=== PATIENT | male | born 1955 | race Caucasian/White ===

== ENCOUNTER 2023-11-19 13:18 | Emergency (ER) | payer MEDICARE, SELFPAY ==
[2023-11-19 13:22] VITALS: BP 124/84
[2023-11-19 14:00] VITALS: BP 128/89
--- NOTE | 2023-11-19 14:30 | ED.GENMED ---
History of Present Illness
General
Chief Complaint: Skin Problem
Source: patient
Time Seen by Provider: 11/19/23 14:21
History of Present Illness
History of Present Illness:
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 Patient had a GI bug earlier this week with vomiting and diarrhea. He missed 2 days of his Eliquis
due to the symptoms. Patient noticed a small amount of redness to the right lower leg 3 days ago. The redness has been spreading and is now circumferential in the right lower leg. He denies any fevers, chills, chest pain, shortness of breath. His
GI symptoms have resolved. His blood sugars have been ranging in the 140s over the past few days.
Past History
Past History
ED Past Medical History: NIDDM
ED Past Surgical History: Other (Hernia surgery)
Social History
Tobacco: Non-smoker
Personal:
Living: with family
Phy Exam
General Physical Exam
General Presentation: well appearing and no apparent distress
General age: appears stated age
General Skin: warm and dry
General Habitus: normal
General Mental: alert
Sparkman Coma Scale
Eye Opening: Spontaneous
Verbal Response: Oriented
Motor Response: Obeys Commands
GCS Total Score: 15
Musculoskeletal Exam
Musculoskeletal Exam: full ROM (No knee effusion noted. ROM of knee and ankle intact.)
Skin Exam
Skin Exam: warm/dry and erythema (Circumferential blanchable erythema and warmth noted to the R calf. 1-2+ pitting edema noted. No fluctuance, crepitus, or pain out of proportion. No open wounds. 2+ DP pulse and sensation intact.)
Psychiatric Exam
Psychiatric Exam: normal mood/affect
Course
Orders/Labs/Results
Orders:
Orders
11/19/23 14:30
Venous Doppler Lwr Ext Rt [US Periph Venous LOWER Ext RT] Urgent
Comment:
Reason For Exam: R calf redness/swelling, hx of DVT
11/19/23 14:42
Basic Metabolic Panel Urgent
Complete Blood Count/With Diff Urgent
PTT Urgent
Prothrombin Time Urgent
11/19/23 15:54
Cephalexin Monohydrate [Keflex] 500 mg PO NOW STA
Abnormal Lab Results
11/19/23
14:42
Abs Immat Gran (auto) 0.1 H 10^3/uL
(0-0.05)
Absolute Neuts (auto) 6.6 H 10^3/uL
(1.4-6.5)
Absolute Monos (auto) 0.9 H 10^3/uL
(0.1-0.6)
Immature Gran % 1.0 H %
(0-0.5)
Lymphocytes % 16.3 L %
(20.5-51.1)
Monocytes % 9.6 H %
(1.7-9.3)
PT 15.8 H Sec
(11.4-14.6)
APTT 39.8 H Sec
(23.4-35.0)
BUN 21 H mg/dl
(9-20)
Glucose 126 H mg/dl
(70-99)
11/19/23 14:42
11/19/23 14:42
Vital Signs
Initial and Last Documented VS:
Initial Vital Signs
Temp Pulse Resp BP Pulse Ox
98 F 100 16 124/84 98
11/19/23 13:22 11/19/23 13:22 11/19/23 13:22 11/19/23 13:22 11/19/23 13:22
Last Documented Vital Signs
Temp Pulse Resp BP Pulse Ox
98.9 F 81 16 116/77 97
11/19/23 15:56 11/19/23 15:56 11/19/23 13:22 11/19/23 15:56 11/19/23 15:56
MDM/Problems Addressed
Differential Diagnosis Includes:
68yoM here with R calf redness and swelling progressing over the past few days. Hx of DVT/PE and missed 2 doses of Eliquis earlier this week. No f/c. No CP/SOB. He is afebrile and hemodynamically stable. He is well appearing in no distress. There is
circumferential erythema noted to the R calf on exam. RLE is neurovascularly intact. Differential diagnosis includes but is not limited to: cellulitis, DVT, chronic venous stasis changes
Initial ED plan: Check CBC, CMP, coags, and venous duplex.
*Critical Care Note
Total Time (30-74mins, 75-104mins- exclusive of procedures): Not Applicable
Update Note
Update Note:
Labs reveal a normal white count. Glucose 126. Venous duplex is negative for DVT. There is a benign appearing lymph node present in the R groin. No indication for admission at this time. Will start patient on a course of Keflex to cover for
cellulitis. Advised close PCP f/u and ED return precautions discussed. He was discharged in stable condition.
ED Attending Note
-
Portions of this chart may have been created with voice recognition software.� Occasional wrong word or��sound alike� substitutions may have occurred due to the inherent limitations of voice recognition software.
Discharge Plan
Departure
Patient Disposition: Home (Routine Discharge)
Date of Disposition: 11/19/23
Time of Disposition: 15:55
Patient with high blood pressure during this ER visit?: No
Discharge Problem:
Cellulitis of right lower extremity
Instructions: Cellulitis (Skin Infection), Adult (DC)
Prescriptions:
New
cephalexin 500 mg capsule
500 mg PO Q6H 7 Days Qty: 27 0RF
No Action
metformin 500 MG tablet
500 mg PO HS
fluticasone propionate [Flovent Diskus] 50 MCG blister with device
1 puff inhalation DAILY PRN (Reason: sob)
albuterol sulfate 8.5 GM HFA aerosol inhaler
8.5 gm inhalation Q4HPRN PRN (Reason: sob)
benzonatate [Tessalon Perles] 100 MG capsule
100 mg PO .TAKE 1 TO 2 CAPSULE PRN (Reason: cough)
ascorbate calcium (vitamin C) [Beverly-C] 500 MG tablet
500 mg PO DAILY
fish oil-dha-epa 1 EACH capsule
1,200 mg PO DAILY
warfarin [Jantoven] 5 MG tablet
10 mg PO DAILY Qty: 60 0RF
Rx Instructions:
Take two 5mg tabs for 10mg dose
enoxaparin 120 MG/0.8 ML syringe
120 mg SC Q12H Qty: 10 0RF
Referrals:
Rafa Saunders MD [Family Provider] -
Activity Restrictions/Additional Instructions:
Take antibiotics as prescribed.
Please follow-up with your family doctor in 3-4 days. Return to the ER with any worsening symptoms, spreading redness, fevers.
Interventions
Interventions:
*Risk Screen - Suicide Last Done: 11/19/23 13:19
*General Assessment Last Done: 11/19/23 13:22
*Neglect/Abuse Screening Last Done: 11/19/23 13:22
ED- Fall Risk Assessment Last Done: 11/19/23 16:08
*ED COVID-19 Vaccine History Last Done: 11/19/23 14:44
*Nursing Disposition Last Done: 11/19/23 16:08
ED-Skin Assessment Last Done: 11/19/23 14:43
Discharge Date and Time
Discharge Date/Time: 11/19/23 16:09
Print Language: THAI
[2023-11-19 14:48] LABS: % Basophils 0.7 % (0-2); % Eosinophils 1.9 % (0-6); % Lymphocytes 16.3 % (20.5-51.1); % Monocytes 9.6 % (1.7-9.3); % Neutrophils 70.5 % (42.2-75.2); Absolute Basophils 0.1 10^3/uL (0-0.2); Absolute Eosinophils 0.2 10^3/uL (0-0.7); Absolute Immature Granulocytes 0.1 10^3/uL (0-0.05); Absolute Lymphocytes 1.5 10^3/uL (1.2-3.4); Absolute Monocytes 0.9 10^3/uL (0.1-0.6); Absolute Neutrophils 6.6 10^3/uL (1.4-6.5); Hematocrit 43.5 % (39.0-52.0); Hemoglobin 15.7 g/dL (13.0-18.0); Mean Corp Hgb Conc. 36.1 g/dL (33.0-37.0); Mean Corpuscular Hgb 29.7 pg (27.0-31.0); Mean Corpuscular Volume 82.2 fL (80.0-94.0); Mean Platelet Volume 9.2 fL (7.4-10.4); Nucleated Red Blood Cells % 0 % (-); Platelet Count 241 10^3/uL (130-400); Red Blood Cell Count 5.29 10^6/uL (4.70-6.10); Red Cell Dist. Width 12.8 % (11.5-14.5); White Blood Cell Count 9.3 10^3/uL (4.8-10.8)
[2023-11-19 15:04] LABS: INR 1.28; PT 15.8 Sec (11.4-14.6)
[2023-11-19 15:05] LABS: APTT 39.8 Sec (23.4-35.0)
[2023-11-19 15:17] LABS: Blood Urea Nitrogen 21 mg/dl (9-20); Calcium 9.4 mg/dl (8.4-10.2); Carbon Dioxide 23 mmol/L (22-30); Chloride 101 mmol/L (98-107); Glucose 126 mg/dl (70-99); Sodium 138 mmol/L (135-145); eGFR > 60.00
[2023-11-19 15:56] VITALS: BP 116/77
[2023-11-19] MEDS: KEFLEX 500 MG PO (15:58)
== END 2023-11-19 16:09 | disposition home or self-care (01) ==
LOC: EMR 13:18
PROVIDERS: Physician Assistant; EMERGENCY PHYSICIAN Emergency Medicine; FAMILY PHYSICIAN Family Medicine
DX: L03.115 Cellulitis of right lower limb (principal); R60.0 Localized edema; E11.9 Type 2 diabetes mellitus without complications; Z91.138 Patient's unintentional underdosing of medication regimen for other reason; Z79.01 Long term (current) use of anticoagulants; Z86.711 Personal history of pulmonary embolism; Z86.718 Personal history of other venous thrombosis and embolism
CPT/HCPCS: 99284; 80048; 85025; 85610; 85730; 93971